=== PATIENT | male | born 1990 | race Caucasian/White ===

== ENCOUNTER 2018-03-14 17:31 | Emergency (ER) | payer SELFPAY ==
--- NOTE | 2018-03-14 18:08 | EKG REPORT ---
SEVERITY:- NORMAL ECG - SINUS RHYTHM : Confirmed by: Brayden Dykes MD 14-Mar-2018 18:08:15
[2018-03-14 18:10] LABS: ABSOLUTE BASOPHILS # (AUTO) 0.1 10^3/uL (0.0-0.2); ABSOLUTE EOSINOPHILS # (AUTO) 0.2 10^3/uL (0.0-0.6); ABSOLUTE LYMPHOCYTES (AUTO) 2.3 10^3/uL (0.5-4.7); ABSOLUTE MONOCYTES (AUTO) 0.5 10^3/uL (0.1-1.4); BASOPHILS % (AUTO) 0.7 % (0-2); EOSINOPHILS % (AUTO) 2.5 % (0-6); HEMATOCRIT 42.7 % (37.9-51.0); HEMOGLOBIN 15.1 g/dL (13.5-17.0); LYMPHOCYTES % (AUTO) 25.4 % (13-45); MEAN CORPUSCULAR HGB CONC 35.3 g/dL (32.0-36.0); MEAN CORPUSCULAR VOLUME 91 fl (80-97); MONOCYTES % (AUTO) 5.9 % (3-13); PLATELET COUNT 235 10^3/uL (150-450); RED CELL DISTRIBUTION WIDTH 12.3 % (11.5-14.0); SEGMENTED NEUTROPHILS % (AUTO) 65.5 % (42-78); TOTAL CELLS COUNTED % (AUTO) 100 %; WHITE BLOOD COUNT 9.2 10^3/uL (4.0-10.5)
--- NOTE | 2018-03-14 18:14 | ER Document Report ---
ED Psych Disorder / Suicide - General Chief Complaint: Suicidal Ideation Stated Complaint: PSYCH EVAL Time Seen by Provider: 03/14/18 18:08 Notes: The patient is a 27-year-old male who presents with increased paranoid thoughts. He feels like he is going to "dark places" and when asked if he wants to hurt himself, he nods "yes." Patient admits to cocaine, methamphetamine and marijuana use, last used earlier today. He drinks socially. He denies any stressors. He denies homicidal thoughts, fevers, neck stiffness, blurry vision or neck pain. TRAVEL OUTSIDE OF THE [place] IN LAST 30 DAYS: No - Related Data Allergies/Adverse Reactions: No Known Allergies Allergy (Unverified 03/14/18 17:34) Past Medical History - General Information source: Patient - Social History Smoking Status: Current Every Day Smoker Frequency of alcohol use: Social Drug Abuse: Cocaine, Marijuana, Methamphetamine Family History: Reviewed & Not Pertinent Review of Systems - Review of Systems Notes: REVIEW OF SYSTEMS: CONSTITUTIONAL: -fevers, -chills EENT: -eye pain, -difficulty swallowing, -nasal congestion CARDIOVASCULAR: -chest pain, -syncope. RESPIRATORY: -cough, -SOB GASTROINTESTINAL: -abdominal pain, -nausea, -vomiting, -diarrhea GENITOURINARY: -dysuria, -hematuria MUSCULOSKELETAL: -back pain, -neck pain SKIN: -rash or skin lesions. HEMATOLOGIC: -easy bruising or bleeding. LYMPHATIC: -swollen, enlarged glands. NEUROLOGICAL: -altered mental status or loss of consciousness, -headache, - neurologic symptoms PSYCHIATRIC: -anxiety, -depression, +drug abuse, +paranoia ALL OTHER SYSTEMS REVIEWED AND NEGATIVE. Physical Exam - Vital signs Vitals: Temp Pulse Resp BP Pulse Ox 99.3 F 106 H 16 137/74 H 96 03/14/18 17:46 03/14/18 17:46 03/14/18 17:46 03/14/18 17:46 03/14/18 17:46 - Notes Notes: PHYSICAL EXAMINATION: GENERAL: Well-appearing, well-nourished and in no acute distress. HEAD: Atraumatic, normocephalic. EYES: Pupils equal round and reactive to light, extraocular movements intact, sclera anicteric, conjunctiva are normal. ENT: nares patent, oropharynx clear without exudates. Moist mucous membranes. NECK: Normal range of motion, supple without lymphadenopathy LUNGS: Breath sounds clear to auscultation bilaterally and equal. No wheezes rales or rhonchi. HEART: Regular rate and rhythm without murmurs ABDOMEN: Soft, nontender, normoactive bowel sounds. No guarding, no rebound. No masses appreciated. EXTREMITIES: Normal range of motion, no pitting or edema. No cyanosis. NEUROLOGICAL: Cranial nerves grossly intact. Normal speech, normal gait. Normal sensory and motor exams. PSYCH: Paranoid mood. Suicidal thoughts. SKIN: Warm, Dry, normal turgor, no rashes or lesions noted. Course - Re-evaluation Re-evalutation: 03/14/18 18:15 Pt with increasing paranoid thoughts. He admits to cocaine and methamphetamine abuse, which may be contributing to these increased thoughts. He does admit to suicidal thoughts, but will not elaborate. Will medically clear patient and have mental health evaluate patient for further recommendations. - Vital Signs Vital signs: Temp Pulse Resp BP Pulse Ox 99.0 F 87 18 128/78 H 96 03/14/18 20:12 03/14/18 20:12 03/14/18 20:12 03/14/18 20:12 03/14/18 20:12 - Laboratory Result Diagrams: 03/14/18 17:50 03/14/18 17:50 Laboratory results interpreted by me: 03/14/18 03/14/18 17:50 18:43 Glucose 112 H Urine Urobilinogen 4.0 H Ur Leukocyte Esterase TRACE H Salicylates < 1.0 L Acetaminophen < 10 L - EKG Interpretation by [place] EKG shows normal: Sinus rhythm, [place], Intervals, QRS Complexes, ST-T Waves Rate: Normal Discharge - Discharge Clinical Impression: Paranoid and/or hallucinatory states induced by drugs Condition: Stable
[2018-03-14 18:27] LABS: ACETAMINOPHEN < 10 ug/mL (10-30); ALANINE AMINOTRANSFERASE 34 U/L (21-72); ALBUMIN 4.2 g/dL (3.5-5.0); ALCOHOL < 10 mg/dL (NONE DETECTED); ALKALINE PHOSPHATASE 81 U/L (38-126); ANION GAP 16 (5-19); ASPARTATE AMINO TRANSFERASE 17 U/L (17-59); BILIRUBIN,DIRECT 0.3 mg/dL (0.0-0.4); BILIRUBIN,TOTAL 0.6 mg/dL (0.2-1.3); BLOOD UREA NITROGEN 9 mg/dL (7-20); CALCIUM 9.7 mg/dL (8.4-10.2); CARBON DIOXIDE 24 mmol/L (22-30); CHLORIDE 105 mmol/L (98-107); GLUCOSE 112 mg/dL (75-110); POTASSIUM 4.3 mmol/L (3.6-5.0); SALICYLATE < 1.0 mg/dL (2.0-20.0); SODIUM 144.6 mmol/L (137-145); TOTAL PROTEIN 6.9 g/dL (6.3-8.2)
[2018-03-14 18:57] LABS: APPEARANCE,URINE CLEAR; BILIRUBIN,URINE NEGATIVE (NEGATIVE); GLUCOSE, URINE NEGATIVE (NEGATIVE); KETONES,URINE NEGATIVE (NEGATIVE); LEUKOCYTE ESTERASE,URINE TRACE (NEGATIVE); NITRITE,URINE NEGATIVE (NEGATIVE); PROTEIN,URINE NEGATIVE (NEGATIVE); URINE SPECIFIC GRAVITY 1.026
[2018-03-14 19:00] LABS: COLOR,URINE YELLOW
[2018-03-14 19:16] LABS: URINE AMPHETAMINES SCREEN UNCONFIRMED POSITIVE; URINE BARBITURATES SCREEN NEGATIVE; URINE BENZODIAZEPINES SCREEN NEGATIVE; URINE COCAINE SCREEN NEGATIVE; URINE MARIJUANA (THC) SCREEN UNCONFIRMED POSITIVE; URINE METHADONE SCREEN NEGATIVE; URINE PHENCYCLIDINE SCREEN NEGATIVE
[2018-03-14] MEDS ORDERED: HALOPERIDOL 5 MG TABLET PO ONE (19:49)
[2018-03-14] MEDS ORDERED: NICOTINE 21 MG/24 HR PATCH.TD24 TD ONE (19:50)
[2018-03-14] MEDS ORDERED: BENZTROPINE MESYLATE 1 MG TABLET PO SCH (20:00)
[2018-03-15] MEDS ORDERED: LORAZEPAM INJ 2 MG/1 ML VIAL IM ONE (00:34)
--- NOTE | 2018-03-15 09:50 | PSYCHOLOGICAL NOTE ---
Psych Note - Psych Note Psych Note: Reason for consult: paranoia patient states he has had "dark thoughts" when asked if he has had thoughts of harming self or others noted to say "yeah". patient noted to be pacing and making intermittent eye contact. Patient admits to cocaine, methamphetamine and marijuana use, last used earlier today. Clinician conducted evaluation via iPad Patient disclosed that he has been feeling very paranoid that people are thinking about hurting him. He continued to state that he is having "dark thoughts" however denies having a plan. Patient states that this is happened before however he can normally "talk himself out of it... But today it is much worse." Patient denies having any previous outpatient mental health treatment. Patient denies wanting to hurt anyone however states that he would "defend" himself if they are "plotting." Patient is alert and orientated to person, place, time and circumstance. Mood is anxious with congruent affect as evidenced by frequently looking around with psychomotor agitation. Patient endorses passive suicidal ideation i.e. no plans means or intent. Patient denies homicidal ideation i.e. no plans means or intent. Delusions of paranoia are observed with thought content focused on the possibility of friends or family plotting against him. Thought process is organized and linear however irrational. Eye contact was well-maintained. Conversational speech is within normal rate, tone and prosody. Intellectual abilities appear within average range. Attention and concentration is poor. Insight, judgment and impulse control is fair. Medication recommendations per [facility]'s contracted psychiatrist Dr. Nhan SARAH are as follows 1. Haldol 10 mg now for acute paranoia 2. Haldol 5 mg twice daily for continued mood stabilization 3. Cogentin 1 mg daily for prevention of possible side effects from Haldol Polysubstance abuse 292.9 (F12.99) unspecified campus related disorder 292.9 (F15.99) unspecified stimulant related disorder; methamphetamine 292.9 (1 4.99) unspecified stimulant related disorder; cocaine Impression/Plan: Patient is recommended for mental health hold for overnight observation. While patient discloses passive suicidal ideation i.e. no plans means or intent he is presenting very anxious. Patient does disclose drug use earlier today with a history of cocaine methamphetamine and marijuana use. Patient will be reevaluated. Dr. Subramanian was consulted and the care and management this patient; attending physician is in agreement with recommendations and disposition.
--- NOTE | 2018-03-15 09:55 | PSYCHOLOGICAL NOTE ---
Psych Note - Psych Note Psych Note: Reason for consult: paranoia patient states he has had "dark thoughts" when asked if he has had thoughts of harming self or others noted to say "yeah". patient noted to be pacing and making intermittent eye contact. Patient admits to cocaine, methamphetamine and marijuana use, last used earlier today. Check in conducted with patient; patient's girlfriend, spring, is at bedside at patient's request Patient denies continued thoughts of passive suicidal ideation and denies paranoia. Patient states "I am all right... Calmer." Patient was asked if he was interested in substance abuse treatment he stated "not really." Patient states he is interested in receiving services for his mental health. Clinician discussed discussed needing to maintain sobriety in order to effectively evaluate mental health since patient's disclosed symptoms could be the result from his drug use. Patient again repeats he is not willing to engage in substance abuse treatment. Patient's mood is euthymic with congruent affect. Patient denies current passive suicidal ideation and discloses no paranoid delusions. Medication recommendations per [facility] contracted psychiatrist Dr. Nhan SARAH are as follows 1. Haldol 5 mg twice daily for continued mood stabilization 2. Cogentin 1 mg daily for prevention of possible side effects from Haldol Polysubstance abuse 292.9 (F12.99) unspecified campus related disorder 292.9 (F15.99) unspecified stimulant related disorder; methamphetamine 292.9 (1 4.99) unspecified stimulant related disorder; cocaine Impression/Plan: Patient is considered cleared from acute psychiatric services. Patient is no longer demonstrating symptoms of paranoia. Patient discloses drug abuse to include cannabis, methamphetamine, and cocaine. Clinician conducted psychoeducation to explain the need for maintaining sobriety to effectively treat mental health. Patient refuses substance abuse treatment. Patient will receive local resource list if he chooses to obtain treatment at a later time. Patient's girlfriend, spring, states she will be part of patient's discharge plan to ensure he does not have access to medications or weapons and follows through with his mental health and encourages substance abuse treatment. Dr. Subramanian was consulted and the care and management this patient; attending physician is in agreement with recommendations and disposition.
[2018-03-15] MEDS ORDERED: HALOPERIDOL 5 MG TABLET PO SCH (10:00)
--- NOTE | 2018-03-15 10:36 | ER Document Report ---
Doctor's Note Notes: 03/15/18 10:35 As the rounding physician for our psychiatric patients, I have reviewed the chart, vitals, lab work. Patient has been examined and noted to be resting comfortably, his presentation is most consistent with drug use. I am awaiting mental health in [place].
[2018-03-15 10:50] VITALS: BP 124/76
== END 2018-03-15 10:52 | disposition home or self-care (01) ==
LOC: ER 17:31
DX: F14.19 Cocaine abuse with unspecified cocaine-induced disorder (principal); F15.19 Other stimulant abuse with unspecified stimulant-induced disorder; F12.19 Cannabis abuse with unspecified cannabis-induced disorder; R45.1 Restlessness and agitation; F17.200 Nicotine dependence, unspecified, uncomplicated; R45.851 Suicidal ideations
CPT/HCPCS: 36415; 80053; 80307; 81001; 85025; 93005; 93010; 99285